=== PATIENT | male | born 1995 | race Caucasian/White ===

== ENCOUNTER 2018-04-30 21:54 | Emergency (ER) | payer OTHER ==
[2018-04-30 23:00] VITALS: BP 115/68
[2018-04-30] MEDS ORDERED: NAPROXEN 250 MG TABLET PO ONE (23:34)
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
== END 2018-04-30 23:52 | disposition home or self-care (01) ==
LOC: ER 21:54
DX: M25.511 Pain in right shoulder (principal); M25.512 Pain in left shoulder; M54.2 Cervicalgia; V87.7XXA Person injured in collision between other specified motor vehicles (traffic), initial encounter
CPT/HCPCS: 99283